=== PATIENT | male | born 1970 | race American Indian/Alaskan Native ===

== ENCOUNTER 2016-07-02 21:21 | Inpatient (IN) | payer OTHER ==
[2016-07-02 22:11] LABS: Basophils % (Auto) 0.5 % (0.0-1.8); Eosinophils % (Auto) 0.6 % (0.0-4.3); Hematocrit 36.7 % (35.5-45.6); Hemoglobin 12.7 gm/dl (11.8-15.2); Mean Corpuscular HGB Conc 35 % (32-34); Mean Corpuscular Hemoglobin 35 pg (28-32); Mean Corpuscular Volume 101 fl (84-94); Platelet Count 175 K/mm3 (140-440); Red Blood Count 3.62 M/mm3 (3.65-5.03); Red Cell Distribution Width 13.7 % (13.2-15.2)
[2016-07-02 22:32] LABS: INR 1.33 (0.87-1.13)
[2016-07-02 22:33] LABS: Partial Thromboplastin Time 37.2 Sec. (24.2-36.6)
[2016-07-02 22:35] LABS: Anion Gap 20 mmol/L; Blood Urea Nitrogen 3 mg/dL (9-20); Carbon Dioxide 22 mmol/L (22-30); Chloride 88.6 mmol/L (98-107); Glucose 172 mg/dL (75-100); Potassium 3.6 mmol/L (3.6-5.0); Sodium 127 mmol/L (137-145)
--- NOTE | 2016-07-02 22:47 | Cat Scan Report ---
FINAL REPORT EXAM: CT HEAD/BRAIN WO CON HISTORY: neuro deficits \T\lt; 6hrs or sx present upon awakening TECHNIQUE: Standard unenhanced CT of the head at 5.0 millimeter axial increments PRIORS: None. FINDINGS: The ventricular system is normal in size and configuration. There is mild bilateral frontal lobe atrophy. 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 There is no evidence for mass lesion, mass effect, midline shift, acute intracranial hemorrhage, or acute ischemia/ infarction. Visualized paranasal sinuses are clear. IMPRESSION: No acute intracranial process noted.
[2016-07-02 22:48] LABS: Calcium 8.2 mg/dL (8.4-10.2)
[2016-07-03] MEDS ORDERED: NACL 0.9% 1000 ML 1,000 ML IV ONE (00:48)
--- NOTE | 2016-07-03 00:48 | Emergency Department Report ---
ED Neuro Deficit HPI - General Chief Complaint: Neuro Symptoms/Deficit Stated Complaint: RIGHT SIDE NUMBNESS Time Seen by Provider: 07/03/16 00:22 Source: patient, family, RN notes reviewed Mode of arrival: Wheelchair Limitations: No Limitations - History of Present Illness Initial Comments: This is a 46-year-old male. He is previously unknown to me. The patient's primary care doctor is Angela. Past medical history includes stroke with residual visual loss in the right eye , diabetes, hypertension, neuropathy. The patient indicates partial compliance with antiplatelet therapy. The patient presents to the ER complaining of mini stroke. The patient's complaint is that his right leg became weak, he had difficulty dorsiflexing the right foot, and had some heaviness and clumsiness of the right leg. This started approximately 3 hours prior to arrival. It has since resolved. The patient denies severe headache, neck pain, chest pain, abdominal pain or shortness of breath. The symptoms were painless. They have no exacerbating or relieving factors. Of note, the patient does indicate that he was consuming alcohol earlier on today and a barbecue. The patient indicates that he is concerned that he was having another stroke. -: Gradual Location: right leg Presenting Symptoms: Present: Weak/Paralyzed One Side. Absent: Sudden, Severe Headache, Blurred/Loss of Vision, Facial Droop/Numbness, Unable to Speak Clearly , Altered Mental Status History of same: Yes Place: home Severity: moderate Quality: weak, numb Improves With: none Worsens With: none On Anticoagulants: Yes Context: gradual onset Associated Symptoms: denies: confusion, chest pain, cough, diaphoresis, fever/ chills, headaches, loss of appetite, malise, nausea/vomiting, vertigo, shortness of breath, syncope, weakness - Related Data Home Medications: Home Medications Medication Instructions Recorded Confirmed Last Taken Gabapentin [Neurontin] 300 mg PO BID 01/08/16 01/08/16 Unknown Liraglutide [Victoza 2-Chan] 0.6 mg SQ QDAY 01/08/16 01/08/16 Unknown glipiZIDE [Glucotrol] 0 mg PO QDAY 01/08/16 01/08/16 Unknown Previous Rx's Medication Instructions Recorded Last Taken Type Lisinopril/Hydrochlorothiazide 1 each PO QDAY #30 tablet 05/26/13 Unknown Rx [Zestoretic 10-12.5 mg] metFORMIN [Glucophage] 850 mg PO BID #60 tablet 05/26/13 Unknown Rx Nitrofurantoin [place]/M-Cryst 100 mg PO Q12HR #14 capsule 01/08/16 Unknown Rx [Macrobid CAP] Ondansetron [Zofran Odt] 4 mg PO Q8HR #10 tab.rapdis 01/08/16 Unknown Rx Allergies/Adverse Reactions: Allergies Allergy/AdvReac Type Severity Reaction Status Date / Time iodine Allergy Rash Verified 01/08/16 11:44 ED Review of Systems ROS: Stated complaint: RIGHT SIDE NUMBNESS Other details as noted in HPI Constitutional: weakness. denies: fever Eyes: denies: vision change ENT: denies: epistaxis Respiratory: denies: wheezing Cardiovascular: denies: chest pain Gastrointestinal: denies: abdominal pain Genitourinary: as per HPI Musculoskeletal: as per HPI Neurological: weakness, numbness, abnormal gait Psychiatric: anxiety ED Past Medical Hx - Past Medical History Previous Medical History?: Yes Hx Hypertension: Yes Hx Diabetes: Yes - Surgical History Past Surgical History?: No - Social History Smoking Status: Never Smoker Substance Use Type: Alcohol - Medications Home Medications: Home Medications Medication Instructions Recorded Confirmed Last Taken Type Lisinopril/Hydrochlorothiazide 1 each PO QDAY #30 tablet 05/26/13 01/08/16 Unknown Rx [Zestoretic 10-12.5 mg] metFORMIN [Glucophage] 850 mg PO BID #60 tablet 05/26/13 01/08/16 Unknown Rx Gabapentin [Neurontin] 300 mg PO BID 01/08/16 01/08/16 Unknown History Liraglutide [Victoza 2-Chan] 0.6 mg SQ QDAY 01/08/16 01/08/16 Unknown History Nitrofurantoin [place]/M-Cryst 100 mg PO Q12HR #14 capsule 01/08/16 Unknown Rx [Macrobid CAP] Ondansetron [Zofran Odt] 4 mg PO Q8HR #10 tab.rapdis 01/08/16 Unknown Rx glipiZIDE [Glucotrol] 0 mg PO QDAY 01/08/16 01/08/16 Unknown History ED Neuro Physical Exam - General Limitations: No Limitations General appearance: alert, in no apparent distress Suspected Stroke: Yes - Head Head exam: Present: atraumatic, normocephalic - Eye Eye exam: Present: normal appearance, EOMI, other (visual acuity intact to finger counting, color perception, reading at a close distance). Absent: PERRL , nystagmus - ENT ENT exam: Present: normal exam, normal orophraynx, mucous membranes moist, normal external ear exam - Neck Neck exam: Present: normal inspection, full ROM. Absent: tenderness, meningismus - Respiratory Respiratory exam: Present: normal lung sounds bilaterally. Absent: respiratory distress, wheezes, rales, rhonchi, stridor, chest wall tenderness, accessory muscle use, decreased breath sounds, prolonged expiratory - Cardiovascular Cardiovascular Exam: Present: regular rate, normal rhythm, normal heart sounds. Absent: bradycardia, tachycardia, irregular rhythm, systolic murmur, diastolic murmur, rubs, gallop - GI/Abdominal GI/Abdominal exam: Present: soft, normal bowel sounds. Absent: distended, tenderness, guarding, rebound, rigid, pulsatile mass - Rectal Rectal exam: Present: deferred - Extremities Exam Extremities exam: Present: normal inspection, full ROM, normal capillary refill. Absent: tenderness, pedal edema, joint swelling, calf tenderness - Back Exam Back exam: Present: normal inspection, full ROM. Absent: tenderness, CVA tenderness (R), CVA tenderness (L), muscle spasm, paraspinal tenderness, vertebral tenderness - Neurological Exam Neurological exam: Present: alert, oriented X3, normal gait (mild past- pointing bilateral upper extremities. [id number] within normal limits. Normal gait.), other (Extraocular movements intact. Tongue midline. No facial droop. Facial sensation intact to light touch in the V1, V2, V3 distribution bilaterally. 5 and 5 strength in 4 extremities.. Sensation is intact to light touch in 4 extremities.). Absent: motor sensory deficit - NIHSS Assessment Interval: Baseline 1a. Level of Consciousness: alert 1b. LOC Questions: answers correctly 1c. LOC Commands: performs tasks correctly 2. Best Gaze: normal 3. Visual: no visual loss 4. Facial Palsy: normal symmetrical movement 5b. Motor Arm Right: no drift 5a. Motor Arm Left: no drift 6a. Motor Leg Left: no drift 6b. Motor Leg Right: no drift 7. Limb Ataxia: absent 8. Sensory: normal 9. Best Language: no aphasia 10. Dysarthria: normal 11. Extinction/Inattention: no abnormality Total Score: 0 Stroke Severity: No Stroke Symptoms - Psychiatric Psychiatric exam: Present: normal affect, normal mood - Skin Skin exam: Present: warm, dry, intact, normal color. Absent: rash ED Course Vital Signs 07/02/16 21:39 Temperature 98.5 F Pulse Rate 104 H Respiratory 18 Rate Blood Pressure 164/99 O2 Sat by Pulse 100 Oximetry - Reevaluation(s) Reevaluation #1: 07/03/16 01:27 differential diagnosis: Transient ischemic attack, times paralysis, conversion disorder, hyponatremia secondary to alcohol consumption Assessment and plan: 46-year-old male with probable TIA, has a GCS of score, NIH score of 0, GCS of 15, not a TPA candidate given GCS of 15, NIH score of 0. He is clinically sober at this time, walks with steady gait. He is not homicidal or suicidal. He is poorly compliant with his aspirin therapy. He will be admitted for high risk features in a high risk patient. Patient has a high risk ABCD 2 score. Case is discussed with the Hospital physician, Dr. Albarran , who accepts the patient to his service. - Lab Data Result diagrams: 07/02/16 21:56 07/02/16 21:56 Lab Results 07/02/16 07/02/16 07/02/16 Range/Units 21:56 21:56 21:56 WBC 8.0 (4.5-11.0) K/mm3 RBC 3.62 L (3.65-5.03) M/mm3 Hgb 12.7 (11.8-15.2) gm/dl Hct 36.7 (35.5-45.6) % MCV 101 H (84-94) fl MCH 35 H (28-32) pg MCHC 35 H (32-34) % RDW 13.7 (13.2-15.2) % Plt Count 175 (140-440) K/mm3 Lymph % (Auto) 31.6 (13.4-35.0) % [place] % (Auto) 11.0 H (0.0-7.3) % Eos % (Auto) 0.6 (0.0-4.3) % Baso % (Auto) 0.5 (0.0-1.8) % Lymph # 2.5 (1.2-5.4) K/mm3 [place] # 0.9 H (0.0-0.8) K/mm3 Eos # 0.1 (0.0-0.4) K/mm3 Baso # 0.0 (0.0-0.1) K/mm3 Seg Neutrophils % 56.3 (40.0-70.0) % Seg Neutrophils # 4.5 (1.8-7.7) K/mm3 PT 16.4 H (12.2-14.9) Sec. INR 1.33 H (0.87-1.13) APTT 37.2 H (24.2-36.6) Sec. Thrombin Time (15.1-19.6) Sec. Sodium 127 L (137-145) mmol/L Potassium 3.6 (3.6-5.0) mmol/L Chloride 88.6 L (98-107) mmol/L Carbon Dioxide 22 (22-30) mmol/L Anion Gap 20 mmol/L BUN 3 L (9-20) mg/dL Creatinine 0.5 L (0.8-1.5) mg/dL Estimated GFR > 60 ml/min BUN/Creatinine Ratio 6.00 % Glucose 172 H (75-100) mg/dL Calcium 8.2 L (8.4-10.2) mg/dL Troponin T < 0.010 (0.00-0.029) ng/mL 07/02/16 Range/Units 21:56 WBC (4.5-11.0) K/mm3 RBC (3.65-5.03) M/mm3 Hgb (11.8-15.2) gm/dl Hct (35.5-45.6) % MCV (84-94) fl MCH (28-32) pg MCHC (32-34) % RDW (13.2-15.2) % Plt Count (140-440) K/mm3 Lymph % (Auto) (13.4-35.0) % [place] % (Auto) (0.0-7.3) % Eos % (Auto) (0.0-4.3) % Baso % (Auto) (0.0-1.8) % Lymph # (1.2-5.4) K/mm3 [place] # (0.0-0.8) K/mm3 Eos # (0.0-0.4) K/mm3 Baso # (0.0-0.1) K/mm3 Seg Neutrophils % (40.0-70.0) % Seg Neutrophils # (1.8-7.7) K/mm3 PT (12.2-14.9) Sec. INR (0.87-1.13) APTT (24.2-36.6) Sec. Thrombin Time 19.0 (15.1-19.6) Sec. Sodium (137-145) mmol/L Potassium (3.6-5.0) mmol/L Chloride (98-107) mmol/L Carbon Dioxide (22-30) mmol/L Anion Gap mmol/L BUN (9-20) mg/dL Creatinine (0.8-1.5) mg/dL Estimated GFR ml/min BUN/Creatinine Ratio % Glucose (75-100) mg/dL Calcium (8.4-10.2) mg/dL Troponin T (0.00-0.029) ng/mL - EKG Data -: EKG Interpreted by Tn EKG shows normal: sinus rhythm 07/03/16 01:28 Sinus tachycardia, normal axis, QTC 495 ms, high left ventricular voltage, nonspecific T-wave abnormality, not consistent with STEMI, unchanged from prior EKG from December 2015. - Radiology Data Radiology results: report reviewed, image reviewed Noncontrast CT scan of the brain is negative - Core Measures Measure Exclusions: not indicated - Thrombolytic Inclusion/Exclusion Thrombolytic Contraindications: Rapidily Improving s/s Critical care attestation.: If time is entered above; I have spent that time in minutes in the direct care of this critically ill patient, excluding procedure time. ED Disposition Clinical Impression: TIA (transient ischemic attack) Disposition: OP ADMITTED IP TO THIS HOSP Is pt being admited?: Yes Does the pt Need Aspirin: Yes Condition: Stable Referrals: PRIMARY CARE, [Primary Care Provider] - 3-5 Days
[2016-07-03] MEDS ORDERED: BABY ASPIRIN PO ONE (01:29)
[2016-07-03] MEDS ORDERED: MORPHINE IV PRN (02:19)
[2016-07-03] MEDS ORDERED: SODIUM CHLORIDE FLUSH SYRINGE 10 ML IV PRN (02:19)
[2016-07-03] MEDS ORDERED: D50W (25GM) IV PRN (02:19)
[2016-07-03] MEDS ORDERED: TYLENOL PO PRN (02:19)
[2016-07-03] MEDS ORDERED: ZOFRAN IV PRN (02:19)
--- NOTE | 2016-07-03 02:19 | History and Physical Report ---
History of Present Illness Date of examination: 07/03/16 Chief complaint: Right-sided weakness History of present illness: Patient is a 46-year-old man with a history of CVA with right hemianopsia and mild left-sided residual weakness, type 2 diabetes mellitus, alcohol dependency and hypertension who presents with sudden onset of moderate transient right sided weakness numbness without aggravating or relieving factors. He had trouble dorsiflexing his right foot. His symptoms lasted for couple hours and started around 7 PM while barbecuing. Patient symptoms has resolved and is back to his baseline. Patient drinks six pack of Budweiser daily. Patient denies any headaches, chest pain, cough shortness of breath. Past medical history: As HPI Past surgical history: Left knee surgery Social history: Denies smoking, alcohol abuse, no illicit drugs, full code Family history: CVA, uncles had coronary artery disease, diabetes and hypertension ROS: as HPI and all other ROS reviewed and negative. Medications and Allergies Allergies Allergy/AdvReac Type Severity Reaction Status Date / Time iodine Allergy Rash Verified 01/08/16 11:44 Home Medications Medication Instructions Recorded Confirmed Last Taken Type Lisinopril/Hydrochlorothiazide 1 each PO QDAY #30 tablet 05/26/13 01/08/16 Unknown Rx [Zestoretic 10-12.5 mg] metFORMIN [Glucophage] 850 mg PO BID #60 tablet 05/26/13 01/08/16 Unknown Rx Gabapentin [Neurontin] 300 mg PO BID 01/08/16 01/08/16 Unknown History Liraglutide [Victoza 2-Chan] 0.6 mg SQ QDAY 01/08/16 01/08/16 Unknown History Nitrofurantoin [place]/M-Cryst 100 mg PO Q12HR #14 capsule 01/08/16 Unknown Rx [Macrobid CAP] Ondansetron [Zofran Odt] 4 mg PO Q8HR #10 tab.rapdis 01/08/16 Unknown Rx glipiZIDE [Glucotrol] 0 mg PO QDAY 01/08/16 01/08/16 Unknown History Exam - Physical Exam Narrative exam: GEN: WDWN, NAD, AWAKE, ALERT, ORIENTATED 3 HEENT: NCAT, PERRL, EOMI, OP CLEAR, sclera red injected, exophthalmus NECK: SUPPLE, NO THYROMEGALY, NO JVD, NO LAD CVS: NORMAL regular tachycardia S1S2 LUNGS/CHEST: CTA B, NORMAL CHEST EXPANSION B, GOOD AIR ENTRY B ABD: SOFT, nontender, distended, GBS, NO REBOUND OR GUARDING EXT/SKIN: NO SIGNIFICANT EDEMA OR RASH MSK: FROM X 4 EXTREMITIES NEURO: CN 2-12 GROSSLY INTACT, NO FOCAL DEFICITS, gait normal, PSY: CALM - Constitutional Vitals: Temp Pulse Resp BP Pulse Ox 98.5 F 104 H 18 164/99 100 07/02/16 21:39 07/02/16 21:39 07/02/16 21:39 07/02/16 21:39 07/02/16 21:39 Results - Labs CBC & Chem 7: 07/02/16 21:56 07/02/16 21:56 Labs: Abnormal lab results 07/02/16 07/02/16 07/02/16 Range/Units 21:56 21:56 21:56 RBC 3.62 L (3.65-5.03) M/mm3 MCV 101 H (84-94) fl MCH 35 H (28-32) pg MCHC 35 H (32-34) % [place] % (Auto) 11.0 H (0.0-7.3) % [place] # 0.9 H (0.0-0.8) K/mm3 PT 16.4 H (12.2-14.9) Sec. INR 1.33 H (0.87-1.13) APTT 37.2 H (24.2-36.6) Sec. Sodium 127 L (137-145) mmol/L Chloride 88.6 L (98-107) mmol/L BUN 3 L (9-20) mg/dL Creatinine 0.5 L (0.8-1.5) mg/dL Glucose 172 H (75-100) mg/dL Calcium 8.2 L (8.4-10.2) mg/dL - Imaging and Cardiology EKG: image reviewed CT Scan - head: report reviewed Assessment and Plan Patient is a 46-year-old man with a history of CVA with right hemianopsia and mild left-sided residual weakness, type 2 diabetes mellitus, alcohol dependency and hypertension who presents with sudden onset of moderate transient right sided weakness numbness without aggravating or relieving factors. He had trouble dorsiflexing his right foot. His symptoms lasted for couple hours and started around 7 PM while barbecuing. Patient symptoms has resolved and is back to his baseline. Patient drinks six pack of Budweiser daily. Patient denies any headaches, chest pain, cough shortness of breath. 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
[2016-07-03] MEDS ORDERED: ATIVAN IV PRN ×2 (02:24)
--- NOTE | 2016-07-03 03:53 | Ultrasound Report ---
FINAL REPORT EXAM: US ABDOMEN COMPLETE HISTORY: cirrhosis TECHNIQUE: Standard ultrasound of the abdomen PRIORS: None. FINDINGS: Examination of the gallbladder demonstrates no evidence for gallstones, distention, wall thickening, or pericholecystic fluid. No sonographic Sanchez's sign is elicited. Common bile duct is normal in diameter measuring 3.7 mm. The liver is normal and homogeneous in echogenicity without focal abnormality or intrahepatic biliary dilatation. The pancreas is normal in thickness without focal abnormality or pancreatic duct dilatation. The spleen is normal in length measuring 12.6 cm and homogeneous in echogenicity without focal abnormalities. No evidence for ascites is noted. Examination of the kidneys demonstrates both to be enlarged in size but have normal cortical echogenicity and thickness. The right and left kidneys measure 14.5 cm and 13.2 cm in craniocaudal length, respectively. No evidence for calculi, hydronephrosis, or solid mass is seen in either kidney. The inferior vena cava and aorta are normal. Maximum diameter of the aorta is 2.0 cm in its proximal portion. IMPRESSION: Normal ultrasound of the abdomen.
[2016-07-03] MEDS: NOVOLOG SUB-Q SCH ×4 (07:30→23:00)
[2016-07-03] MEDS: ATIVAN IV PRN ×2 (09:00→23:30)
[2016-07-03] MEDS ORDERED: NORMODYNE IV PRN (09:00)
--- NOTE | 2016-07-03 09:55 | Magnetic Resonance Report ---
MRI OF THE BRAIN WITHOUT CONTRAST: HISTORY: CVA PROCEDURE: Multiplanar, multisequence MR imaging of the brain without IV contrast was performed. FINDINGS: Mild cortical volume loss is suspected for this patient's age. Otherwise, the brain parenchyma signal intensity and its durbin-white interface are within normal limits on all sequences. No evidence for acute ischemia, hemorrhage or mass. No chronic infarct or extra-axial fluid collection. The midline structures are central. The basal cisterns are patent. Normal ventricular size. Incidental cavum septum pellucidum and cavum septum verge area are noted. The orbital cavities and sella turcica demonstrate no abnormality. The visualized paranasal sinuses and mastoid air cells are well aerated. IMPRESSION: Mild cortical volume loss. No acute intracranial process.
--- NOTE | 2016-07-03 09:56 | Magnetic Resonance Report ---
MRA HEAD WITHOUT CONTRAST HISTORY: Stroke. [id number] imaging with MIP reformations of the [place] of [place] is submitted. The arteries appear widely patent and free of hemodynamically significant stenosis or aneurysm dilatation. Both vertebral arteries are identified appearing patent as well. IMPRESSION: Unremarkable MRA head.
[2016-07-03] MEDS ORDERED: ZESTRIL PO SCH (10:00)
[2016-07-03] MEDS: GLUCOPHAGE PO SCH ×2 (10:00→21:50)
[2016-07-03] MEDS ORDERED: LISINOPRIL PO SCH (10:00)
[2016-07-03] MEDS ORDERED: HYDROCHLOROTHIAZIDE PO SCH (10:00)
[2016-07-03] MEDS: GLUCOTROL PO SCH (10:00)
[2016-07-03] MEDS ORDERED: HCTZ PO SCH (10:00)
[2016-07-03] MEDS: FOLVITE PO SCH (10:18)
[2016-07-03] MEDS: ASPIRIN PO SCH (10:19)
[2016-07-03] MEDS: NEURONTIN PO SCH ×2 (10:19→21:36)
[2016-07-03] MEDS: VITAMIN B-1 PO SCH (10:19)
[2016-07-03] MEDS: APRESOLINE IV PRN ×2 (17:06→23:27)
[2016-07-03] MEDS ORDERED: ZOCOR PO SCH (22:00)
--- NOTE | 2016-07-04 00:34 | Event Note ---
Date: 07/04/16 He had 5 beat asympt run of NSVT. He was given iv hydralazine around 11pm for uncontrolled hypertension. cmp, magnesium, ce and troponin, ekg ordered.
[2016-07-04] MEDS: APRESOLINE IV PRN (05:54)
[2016-07-04 06:34] LABS: Basophils % (Auto) 0.4 % (0.0-1.8); Eosinophils % (Auto) 0.8 % (0.0-4.3); Hematocrit 37.5 % (35.5-45.6); Mean Corpuscular HGB Conc 35 % (32-34); Mean Corpuscular Hemoglobin 35 pg (28-32); Mean Corpuscular Volume 100 fl (84-94); Platelet Count 154 K/mm3 (140-440); Red Blood Count 3.76 M/mm3 (3.65-5.03); Red Cell Distribution Width 13.8 % (13.2-15.2); White Blood Count 6.9 K/mm3 (4.5-11.0)
[2016-07-04 06:48] LABS: Creatine Kinase MB 1.9 ng/mL (0.0-4.0)
[2016-07-04 06:49] LABS: Albumin 3.1 g/dL (3.9-5); Albumin/Globulin Ratio 0.6 %; Alkaline Phosphatase 388 units/L (35-129); BUN/Creatinine Ratio 16.66; Blood Urea Nitrogen 5 mg/dL (9-20); Calcium 8.2 mg/dL (8.4-10.2); Carbon Dioxide 22 mmol/L (22-30); Chloride 90.9 mmol/L (98-107); Creatine Kinase 166 units/L (55-170); Glucose 137 mg/dL (75-100); Sodium 131 mmol/L (137-145); Total Protein 8.1 g/dL (6.3-8.2)
[2016-07-04] MEDS: NOVOLOG SUB-Q SCH ×2 (07:30→11:30)
[2016-07-04] MEDS ORDERED: HCTZ PO SCH (07:34)
[2016-07-04] MEDS ORDERED: ZESTRIL PO SCH (07:35)
--- NOTE | 2016-07-04 07:36 | Discharge Summary ---
Providers - Providers Date of Admission: 07/03/16 02:19 Attending physician: CARSON HAYWARD MD Primary care physician: SOLAR DESIGNER/INSTALLER Hospitalization Condition: Stable Hospital course: 46-year-old male with a previous history of stroke, no residual deficits. Also had a history of hypertension and hyperlipidemia who presented with right-sided weakness. Shortly After coming to the hospital he states that that the weakness and numbness in his right upper and lower extremity resolved. Patient went on to have an MRI of his brain did not show any stroke, also found to have an echocardiogram that was within normal limits. He was noted to have hypertensive emergency, he was treated with IV meds and his oral meds optimized. Also noted to have elevated cholesterol, he was not taking a statin despite previous history of stroke. He was counseled on importance of taking his medications properly. He was started on a statin, blood pressure medications optimized. With regards to heavy alcohol abuse, patient was concerned he might have fluid in his belly, therefore he had abdominal ultrasound that was negative for ascites. He was counseled about the importance of abstinence from alcohol, and he relates that that he will try to quit drinking on his own Discharge diagnoses TIA Moderate Malnutrition Hypertensive Emergency Hyperlipidemia Hyponatremia -Alcohol dependency Disposition: DISCHARGED TO HOME OR SELFCARE Time spent for discharge: 35 minutes Core Measure Documentation - Palliative Care Palliative Care/ Comfort Measures: Not Applicable - Core Measures Any of the following diagnoses?: stroke - Stroke Discharge Requirements Statin for LDL = or >70 mg/dl on DC: Yes Anticoag for atrial fib/atrial flutter: Not Applicable Antithrombotic for ischemic stroke: No Reason for no antithrombotic on DC: Not Indicated Exam - Constitutional Vitals: Temp Pulse Resp BP Pulse Ox 98 F 100 H 22 169/87 100 07/04/16 00:00 07/04/16 05:54 07/04/16 00:00 07/04/16 05:54 07/04/16 00:00 General appearance: Present: no acute distress, well-nourished - EENT Eyes: Present: PERRL ENT: hearing intact, clear oral mucosa - Neck Neck: Present: supple, normal ROM - Respiratory Respiratory effort: normal Respiratory: bilateral: CTA - Cardiovascular Heart Sounds: Present: S1 & S2. Absent: rub, click - Extremities Extremities: pulses symmetrical, No edema Peripheral Pulses: within normal limits - Abdominal General gastrointestinal: Present: soft, non-tender, non-distended, normal bowel sounds Male genitourinary: Present: normal - Integumentary Integumentary: Present: clear, warm, dry - Musculoskeletal Musculoskeletal: gait normal, strength equal bilaterally - Psychiatric Psychiatric: appropriate mood/affect, intact judgment & insight - Neurologic Neurologic: CNII-XII intact, moves all extremities Plan Follow up with: PRIMARY CARE,MD [Primary Care Provider] - 3-5 Days Prescriptions: Aspirin EC [Aspirin Enteric Coated TAB] 81 mg PO QDAY #30 tablet. AtorvaSTATin [Lipitor] 40 mg PO HS #30 tablet Hydrochlorothiazide [HCTZ] 25 mg PO QDAY #30 tablet Lisinopril [Zestril TAB] 40 mg PO QDAY #30 tablet Vitamin B Complex [B Complex] 1 each PO DAILY #30 tablet
[2016-07-04 07:43] LABS: Alanine Aminotransferase 37 units/L (7-56); Anion Gap 22 mmol/L; Potassium 3.5 mmol/L (3.6-5.0)
[2016-07-04 08:16] VITALS: BP 119/66
[2016-07-04] MEDS: GLUCOTROL PO SCH (09:34)
[2016-07-04] MEDS: GLUCOPHAGE PO SCH (09:34)
[2016-07-04] MEDS: NEURONTIN PO SCH (09:35)
[2016-07-04] MEDS: FOLVITE PO SCH (09:35)
[2016-07-04] MEDS: VITAMIN B-1 PO SCH (09:35)
[2016-07-04] MEDS ORDERED: LOVENOX SUB-Q SCH (10:00)
[2016-07-04] MEDS: ASPIRIN PO SCH (10:00)
[2016-07-04 14:48] LABS: Creatine Kinase MB 2.1 ng/mL (0.0-4.0)
[2016-07-04 14:49] LABS: Creatine Kinase 174 units/L (55-170)
== END 2016-07-04 14:30 | disposition home or self-care (01) | DRG 69 ==
LOC: ED 21:21 → 3A 07-03 02:19
PROVIDERS: ADMIT Internal Medicine; ATTEND Internal Medicine
DX: G45.9 Transient cerebral ischemic attack, unspecified (principal); E44.0 Moderate protein-calorie malnutrition; I16.1 Hypertensive emergency; E87.1 Hypo-osmolality and hyponatremia; D68.59 Other primary thrombophilia; I47.1 Supraventricular tachycardia; I69.354 Hemiplegia and hemiparesis following cerebral infarction affecting left non-dominant side; I10 Essential (primary) hypertension; E78.5 Hyperlipidemia, unspecified; F10.20 Alcohol dependence, uncomplicated; E11.40 Type 2 diabetes mellitus with diabetic neuropathy, unspecified; F41.9 Anxiety disorder, unspecified; Z82.3 Family history of stroke; Z68.26 Body mass index [BMI] 26.0-26.9, adult; Z82.49 Family history of ischemic heart disease and other diseases of the circulatory system; Z83.3 Family history of diabetes mellitus; Z91.041 Radiographic dye allergy status; H53.47 Heteronymous bilateral field defects; H54.61 Unqualified visual loss, right eye, normal vision left eye; I69.398 Other sequelae of cerebral infarction
CPT/HCPCS: 36415; 70450; 70544; 70551; 76700; 80048; 80053; 80061; 82550; 82553; 82962; 83735; 84443; 84484; 85025; 85610; 85670; 85730; 93005; 93010; 93306; 93880; 96360; A9270-GY; J0360; J1650; J2060; J7030

== ENCOUNTER 2018-12-24 12:30 | Emergency (ER) | payer SELFPAY ==
[2018-12-24 12:41] VITALS: BP 167/71
--- NOTE | 2018-12-24 12:45 | Emergency Department Report ---
Chief Complaint: Hyperglycemia Stated Complaint: SUGAR CHECK/DIABETIC Time Seen by Provider: 12/24/18 12:39 - HPI History of Present Illness: This is a 48-year-old male nontoxic, well in appearance with no signs of distress presents to the ED for glucose finger stick check. Patient stated just moved and has glucose testing in a box which is still unopened as he just moved. Patient stated he is asymptotic. Denies any dizziness, fatigue, visual changes, or headache. Patient denies any urinary symptoms. Patient denies any fever, chills, headache, nausea, vomiting, chest pain or shortness of breathe. Denies any symptoms or complaints. - Exam Physical Exam: no abdominal pain. no back pains. no visual changes. no back pains. no urinary symptoms. Stated is asymptotic. He just wanted glucose testing. MSE screening note: Focused history and physical exam performed. Due to findings the following was ordered: ED Medical Decision Making - Medical Decision Making 48-year-old male that presents with glucose finger stick testing. Denies any symptoms. Vital signs stable. When asked why patient came to the ED, he stated his glucose testing is in a box and is unloading his boxes now. Finger stick is 115 done in triage. Patient is stable. Patient was instructed to Follow-up with a primary care doctor in 3-5 days or if symptoms worsen and continue return to emergency room as soon as possible. At time of discharge, the patient does not seem toxic or ill in appearance. No acute signs of distress noted. Patient agrees to discharge treatment plan of care. No further questions noted by the patient. ED Disposition for MSE Clinical Impression: Physical exam Disposition: DC-01 TO HOME OR SELFCARE Is pt being admited?: No Does the pt Need Aspirin: No Condition: Stable Instructions: How to Check Your Blood Sugar (ED) Additional Instructions: Follow-up with a primary care doctor in 3-5 days or if symptoms worsen and continue return to emergency room as soon as possible. Referrals: JHOANA PRADO MD [Referring] - 3-5 Days TIANA BARBOZA MD [Staff Physician] - 3-5 Days [facility] [Outside] - 3-5 Days [facility] [Outside] - 3-5 Days
== END 2018-12-24 13:39 | disposition home or self-care (01) ==
LOC: ED 12:30
DX: E11.65 Type 2 diabetes mellitus with hyperglycemia (principal); I10 Essential (primary) hypertension; Z91.041 Radiographic dye allergy status
CPT/HCPCS: 82962; 99283